=== PATIENT | female | born 1975 | race Caucasian/White ===

== ENCOUNTER 2023-07-13 10:23 | Outpatient (CLI) | payer OTHER ==
--- NOTE | 2023-07-14 08:46 | Mammography Report ---
BILATERAL DIGITAL SCREENING MAMMOGRAM 3D/2D: 07/13/2023 CLINICAL: Routine screening. Comparison is made to exam dated: 01/12/2016 mammogram - [facility]. There are scattered areas of fibroglandular density in both breasts (category b / 25%-50% glandular t issue). There is a new irregular low density asymmetry in the left breast at 12 o'clock middle depth. There also is a new oval focal asymmetry in the left breast at 11 o'clock anterior depth. Additionally, there is a new round focal asymmetry in the left breast central to the nipple posterior depth. No other significant masses, calcifications, or other findings are seen in either breast. IMPRESSION: INCOMPLETE: NEEDS ADDITIONAL IMAGING EVALUATION The new irregular low density asymmetry in the left breast at 12 o'clock middle depth is indeterminat e. Additional views with possible ultrasound are recommended. The new oval focal asymmetry in the left breast at 11 o'clock anterior depth is indeterminate. Addit ional views with possible ultrasound are recommended. The new round focal asymmetry in the left breast central to the nipple posterior depth is indetermina te. Additional views with possible ultrasound are recommended. Based on the Tyrer Cuzick model (a risk assessment model) the patient's lifetime risk is 6.9% and her 10 year risk is 1.5%. According to the ACR, ACS, and NCCN guidelines, an annual breast MRI exam jose juan g with mammogram is recommended if the patient's lifetime risk is 20% or greater. This exam was interpreted at Station ID: [id number]. NOTE: For mammograms, a report in lay terms will be sent to the patient. Approximately 15% of breast malignancies will not be visualized mammographically. In the management of a palpable breast mass, a negative mammogram must not discourage biopsy of a clinically suspicious lesion. Electronically Signed By: Ignacia parker/:07/13/2023 17:26:47 ACR BI-RADS Category 0: Incomplete 3340F PARENCHYMAL PATTERN: (A) - The breast(s) demonstrate(s) scattered fibroglandular densities. BI-RADS CATEGORY: (0) - 0 Mammo and [place] [id number] Immediate follow-up LATERALITY: (B)
== END 2023-07-13 10:24 | disposition home or self-care (01) ==
LOC: DI.N 10:23
PROVIDERS: ATTEND Physician Assistant
DX: Z12.31 Encounter for screening mammogram for malignant neoplasm of breast (principal); R92.323 Mammographic fibroglandular density, bilateral breasts; R92.8 Other abnormal and inconclusive findings on diagnostic imaging of breast

== ENCOUNTER 2023-08-25 11:04 | Outpatient (CLI) | payer OTHER ==
--- NOTE | 2023-08-28 10:57 | Mammography Report ---
UNILATERAL LEFT DIGITAL DIAGNOSTIC MAMMOGRAM 3D/2D WITH SPOT COMPRESSION: 08/25/2023 CLINICAL: Patient returns today to evaluate asymmetries in Left breast. Comparison is made to exams dated: 07/13/2023 mammogram and 01/12/2016 mammogram - [facility]. There are scattered areas of fibroglandular density in the left breast (category b / 25%-50% glandula r tissue). There is an equal density focal asymmetry in the left breast at 11 o'clock posterior depth. There also is a 0.7 cm oval equal density focal asymmetry in the left breast at 11 o'clock anterior d epth. This is seen in additional views. Additionally, there is an oval equal density focal asymmetry in the left breast at 12 o'clock middle depth. No other significant masses or calcifications are seen in the breast. IMPRESSION: INCOMPLETE: NEEDS ADDITIONAL IMAGING EVALUATION The equal density focal asymmetry in the left breast at 11 o'clock posterior depth resembles fibrogla ndular tissue and is indeterminate. An ultrasound is recommended for further evaluation and is sched uled to immediately follow this examination. The 0.7 cm oval equal density focal asymmetry in the left breast at 11 o'clock anterior depth resembl es a cyst or a lymph node and is indeterminate. An ultrasound is recommended for further evaluation and is scheduled to immediately follow this examination. The oval equal density focal asymmetry in the left breast at 12 o'clock middle depth resembles a cyst or a lymph node and is indeterminate. An ultrasound is recommended for further evaluation and is alex eduled to immediately follow this examination. Based on the Tyrer Cuzick model (a risk assessment model) the patient's lifetime risk is 6.9% and her 10 year risk is 1.6%. According to the ACR, ACS, and NCCN guidelines, an annual breast MRI exam jose juan g with mammogram is recommended if the patient's lifetime risk is 20% or greater. This exam was interpreted at Station ID: [id number]. NOTE: For mammograms, a report in lay terms will be sent to the patient. Approximately 15% of breast malignancies will not be visualized mammographically. In the management of a palpable breast mass, a negative mammogram must not discourage biopsy of a clinically suspicious lesion. Electronically Signed By: Lei Worrell M.D. aty/:08/25/2023 19:21:41 ACR BI-RADS Category 0: Incomplete 3340F PARENCHYMAL PATTERN: (A) - The breast(s) demonstrate(s) scattered fibroglandular densities. BI-RADS CATEGORY: (0) - 0 Ultrasound [id number] Immediate follow-up LATERALITY: (L)
--- NOTE | 2023-08-28 10:57 | Ultrasound Report ---
LIMITED ULTRASOUND OF LEFT BREAST: 08/25/2023 CLINICAL: Patient returns today to evaluate a focal asymmetry in the left breast. Comparison is made to exams dated: 07/13/2023 mammogram and 01/12/2016 mammogram - [facility]. Color flow ultrasound of the left breast 10-12 o'clock region was performed. Oh scale images of t he real-time examination were reviewed. There is a 0.8 cm x 0.4 cm x 0.7 cm wider than tall oval cyst in the left breast at 11 o'clock anteri or depth 6 cm from the nipple. This oval cyst is anechoic with posterior acoustic enhancement. This correlates with mammography findings. Color flow imaging demonstrates that there is no vascularity present. There also is a 0.8 cm x 0.3 cm x 0.6 cm cluster of oval simple cysts in the left breast at 12 o'cloc k middle depth 7 cm from the nipple. This cluster of oval simple cysts is anechoic. This correlates with mammography findings. Color flow imaging demonstrates that there is no vascularity present. Additionally, there is a 0.5 cm x 0.3 cm x 0.4 cm wider than tall oval simple cyst in the left breast at 10 o'clock middle depth 6 cm from the nipple. This oval simple cyst is hypoechoic with a well-de fined boundary and posterior acoustic enhancement. This correlates as an incidental finding. Color flow imaging demonstrates that there is no vascularity present. In addition, there is no sonographic correlate for focal asymmetry seen at the left breast at 11 o'cl ock posterior depth which may represent fibroglandular tissue. IMPRESSION: PROBABLY BENIGN There is no sonographic correlate for focal asymmetry in the posterior left breast 11 o'clock which m ay represent fibroglandular tissue which is probably benign. The 0.8 cm x 0.4 cm x 0.7 cm wider than tall oval cyst in the left breast at 11 o'clock anterior dept h is consistent with a simple cyst and is benign. The 0.8 cm x 0.3 cm x 0.6 cm cluster of oval simple cysts in the left breast at 12 o'clock middle dep th is consistent with a simple cyst and is benign. The 0.5 cm x 0.3 cm x 0.4 cm wider than tall oval simple cyst in the left breast at 10 o'clock middle depth is an incidental finding and consistent with a benign simple cyst. A follow-up left mammogram with possible left ultrasound in 6 months is recommended to demonstrate st ability of the focal asymmetry at the 11 o'clock posterior depth only. Above benign simple cysts do not need to be followed. Findings and recommendations were conveyed to the patient during today's evaluation. This exam was interpreted at Station ID: [id number]. Electronically Signed By: Lei Worrell M.D. aty/:08/25/2023 19:30:36 Ultrasound BI-RADS: 3 Probably benign BI-RADS CATEGORY: (3) - 3 Mammo and [place] [id number] 6 month follow-up LATERALITY: (L)
== END 2023-08-25 11:05 | disposition home or self-care (01) ==
LOC: DI 11:04
PROVIDERS: ATTEND Physician Assistant
DX: R92.8 Other abnormal and inconclusive findings on diagnostic imaging of breast (principal); N60.12 Diffuse cystic mastopathy of left breast; R92.322 Mammographic fibroglandular density, left breast